=== PATIENT | female | born 1945 | race American Indian/Alaskan Native ===

== ENCOUNTER 2018-10-15 07:26 | Inpatient (IN) | payer MEDICARE ==
[~2018-10-15 07:26] MED LIST: NACL 0.9% 500 ML 500 ML IV ONE
[2018-10-15] MEDS ORDERED: ATIVAN IV ONE ×5 (07:30→08:18)
[2018-10-15] MEDS ORDERED: ATIVAN ONE ×2 (07:35→07:40)
[2018-10-15] MEDS ORDERED: KEPPRA 1,000 MG/NS 0.75% 100ML 1,000 MG/100 ML BAG IV ONE (07:37)
[2018-10-15] MEDS ORDERED: NACL 0.9% 1000 ML 1,000 ML IV ONE ×3 (07:38→08:04)
[2018-10-15] MEDS ORDERED: AMIDATE IV ONE ×2 (07:39→14:40)
[2018-10-15] MEDS ORDERED: QUELICIN IV ONE (07:41)
[2018-10-15] MEDS ORDERED: ATIVAN IV PRN (07:45)
[2018-10-15] MEDS ORDERED: VASELINE LIP THERAPY TP PRN (07:45)
[2018-10-15] MEDS ORDERED: ARTIFICIAL TEARS OPHTH OINT OU PRN (07:45)
[2018-10-15] MEDS ORDERED: MAXIPIME/NS 2 GM/100 ML 2 GM/100 ML BAG IV ONE (07:55)
[2018-10-15 07:59] LABS: Basophils % (Auto) 0.4 % (0.0-1.8); Eosinophils # (Auto) 0.1 K/mm3 (0.0-0.4); Eosinophils % (Auto) 0.5 % (0.0-4.3); Hematocrit 30.3 % (30.3-42.9); Lymphocytes # (Auto) 1.6 K/mm3 (1.2-5.4); Lymphocytes % (Auto) 13.7 % (13.4-35.0); Mean Corpuscular HGB Conc 33 % (30-34); Mean Corpuscular Volume 98 fl (79-97); Monocytes # (Auto) 0.8 K/mm3 (0.0-0.8); Monocytes % (Auto) 6.9 % (0.0-7.3); Platelet Count 336 K/mm3 (140-440); Red Blood Count 3.09 M/mm3 (3.65-5.03); Red Cell Distribution Width 17.7 % (13.2-15.2)
[2018-10-15] MEDS ORDERED: VANCOMYCIN PHARMACY TO DOSE IV SCH (08:00)
[2018-10-15] MEDS ORDERED: ATIVAN 100 MG in NACL 0.9% 50 ML, VIAFLEX EMPTY CONTAINER 0 ML IV SCH (08:00)
[2018-10-15 08:02] LABS: INR 1.28 (0.87-1.13)
[2018-10-15 08:06] LABS: Alanine Aminotransferase 131 units/L (7-56); Albumin 2.1 g/dL (3.9-5); BUN/Creatinine Ratio 22; Blood Urea Nitrogen 20 mg/dL (7-17); Calcium 8.1 mg/dL (8.4-10.2); Hemolysis Index 2
[2018-10-15] MEDS ORDERED: TYLENOL ONE (08:08)
--- NOTE | 2018-10-15 08:12 | XRay Report ---
PORTABLE CHEST INDICATION: Possible sepsis. COMPARISON: None similar. FINDINGS: Portable, frontal chest radiograph suggests mild cardiomegaly. Pulmonary arterial hypertension not excluded. Aortic knob calcifications. ET tube tip approximately 2.5 cm above the adolph. An esophagogastric tube extends into the stomach and beyond the inferior radiographic margin. Right hemidiaphragm approximately 2 cm higher than the left. Mild right infrahilar atelectasis/density. Otherwise clear lungs. EKG leads. Thoracic dextroscoliosis with multilevel osteophytes. CONCLUSION: No acute significant chest process in this intubated patient with various other findings, as above. Please correlate. Thank you for the opportunity to participate in this patient's care.
[2018-10-15] MEDS ORDERED: CORDARONE IV ONE (08:18)
[2018-10-15] MEDS ORDERED: TYLENOL PO ONE (08:25)
[2018-10-15 08:33] LABS: Bacteria,Urine 2+ /HPF (Negative); Bilirubin,Urine NEG (Negative); Blood,Urine LG (Negative); Color,Urine Amber (Yellow); Hyaline Casts,Urine 9 /LPF
[2018-10-15] MEDS ORDERED: LEVOPHED DRIP 4 MG/NS 250 ML 4 MG/250 ML BAG IV ONE (08:57)
[2018-10-15] MEDS ORDERED: XYLOCAINE 1% 20 mL INFILTRATI ONE (09:00)
[2018-10-15] MEDS ORDERED: XYLOCAINE 1% 20 mL ONE (09:04)
[2018-10-15] MEDS: LEVOPHED DRIP 4 MG/NS 250 ML 4 MG/250 ML BAG IV SCH ×2 (09:05→17:14)
--- NOTE | 2018-10-15 09:07 | Cat Scan Report ---
CT HEAD WITHOUT CONTRAST INDICATION: Seizure, altered mental status. COMPARISON: None similar. FINDINGS: Noncontrast head CT demonstrates presumed acute on chronic right subdural changes, including mild pneumocephalus with approximately 2.3 cm right frontal air noted as on axial series 2, image 32. Hypodense right subdural fluid also noted with maximum thickness of 1.4 cm right frontal, axial image 41. Subtle peripheral hyperdensity presumed related to the meninges. Mild underlying right cerebral mass effect/sulcal effacement, though no significant midline shift suspected at this time. Approximately 5 x 4 cm presumed encephalomalacia in the right posterior [id number] region as on axial image 32. Some parafalcine subdural fluid also incidentally noted. Right parietal ji hole with fluid noted on its either side, including overlying scalp. Grossly normal ventricles and the left hemisphere. Grossly normal posterior fossa with preserved basilar cisterns. Normal imaged eye globes. Mild nasal septal deviation. Moderate to severe left sphenoid sinus opacification. Mild right sphenoid, bilateral ethmoid, right frontal and bilateral maxillary sinus mucosal thickening. Left frontal sinus and bilateral mastoid air cells appear clear. Atherosclerotic ICA calcifications. Mild hyperostosis frontalis interna. Prominent nasopharyngeal soft tissue/adenoids that may be directly visualized. CONCLUSION: 1. Right subdural fluid collection and mild pneumocephalus may represent acute on chronic changes in this patient with right parietal ji hole, as detailed above. 2. Other findings, including sinusitis, as described above. Please also correlate clinically and with prior relevant imaging, if available. Thank you for the opportunity to participate in this patient's care.
[2018-10-15] MEDS ORDERED: CORDARONE 900 MG in D5W 482 ML IV SCH (09:30)
--- NOTE | 2018-10-15 09:39 | Emergency Department Report ---
ED General Adult HPI - General Chief complaint: Altered Mental Status Stated complaint: UNSTABLE Time Seen by Provider: 10/15/18 07:51 Source: EMS Mode of arrival: Stretcher Limitations: Altered Mental Status, Physical Limitation - History of Present Illness Initial comments: This is a 73 year old snf patient who the record states is oriented 2 at her baseline. She is recently status post a craniotomy and transferred to the snf at the end of September. The limited report we have from the snf is that "the patient is unstable". She was transported via EMS with no appreciable intervention. I was called into the room by one of the nurses who stated that it appeared the patient needed to be intubated. I immediately responded. I found the patient with generalized seizures. Her pulse oximetry was well maintained on oxygen. She had atrial fibrillation with rapid ventricular response. Her blood pressure was essentially normal. Airway required securing but she was breathing amply. On general appearance, she did seem toxic. Therefore the patient was prepared for rapid sequence intubation as we addressed her generalized seizures with Ativan and Keppra. -: unknown Severity scale (0 -10): 0 - Related Data Allergies Allergy/AdvReac Type Severity Reaction Status Date / Time No Known Allergies Allergy Unverified 01/01/15 09:52 ED Review of Systems ROS: Stated complaint: UNSTABLE Other details as noted in HPI Comment: Unobtainable due to pts medical conditions ED Past Medical Hx - Past Medical History Previous Medical History?: Yes Hx Hypertension: Yes Hx CVA: Yes (left side defecit) Hx Dementia: Yes - Surgical History Past Surgical History?: Yes Additional Surgical History: crainiotomy - Social History Smoking Status: Unknown if ever smoked Other Social History: assisted resident ED Physical Exam - General Limitations: Altered Mental Status, Physical Limitation General appearance: other (toxic. Actively seizing) - Eye Eye exam: Present: other (conjugate gaze deviation). Absent: scleral icterus - ENT ENT exam: Present: mucous membranes dry, other (trismus) - Neck Neck exam: Present: normal inspection. Absent: meningismus (not grossly) - Respiratory Respiratory exam: Present: decreased breath sounds - Cardiovascular Cardiovascular Exam: Present: tachycardia, irregular rhythm - GI/Abdominal GI/Abdominal exam: Present: soft. Absent: distended, guarding - Extremities Exam Extremities exam: Present: other (no acute deformity) - Back Exam Back exam: Present: other (unable to visualize) - Neurological Exam Neurological exam: Present: other (actively seizing) - Psychiatric Psychiatric exam: Present: other (not applicable) - Skin Skin exam: Present: warm, dry, normal color. Absent: intact (cannot view back), rash ED Course Vital Signs 10/15/18 10/15/18 10/15/18 07:30 07:40 07:50 Temperature Pulse Rate 190 H 191 H 165 H Respiratory 45 H 48 H 14 Rate Blood Pressure 109/85 137/90 Blood Pressure [Right] O2 Sat by Pulse 95 98 100 Oximetry 10/15/18 10/15/18 10/15/18 08:00 08:01 08:11 Temperature 102.1 F H Pulse Rate 162 H 154 H Respiratory 23 23 Rate Blood Pressure 108/33 Blood Pressure [Right] O2 Sat by Pulse 100 99 Oximetry 10/15/18 10/15/18 10/15/18 08:30 08:55 08:57 Temperature Pulse Rate 146 H 139 H Respiratory Rate Blood Pressure 92/43 Blood Pressure 51/28 94/45 [Right] O2 Sat by Pulse 100 100 Oximetry - Reevaluation(s) Reevaluation #1: Sekou Villegas, rapid sequence intubation. Intubation 7.5 Upper Sorbian 22 cm single attempt without difficulty. Seizing stopped. Patient with RVR and A. fib. Fluid bolus. Amiodarone and drip. Empirically Covered for sepsis. Hospitalist informed of the need to admit. To position that on chest x-ray without acute pulmonary process CT the head showed no acute process. Blood pressure started to drift low. Placed right IJ catheter single attempt without difficulty. Patient stable for transfer to the ICU for further care and evaluation appropriate consultation. 10/15/18 09:41 - Central Line Placement Right IJ Consent Obtained: emergent situation Time Out Performed: No Patient Placed on Monitor/Pulse Ox: Yes Prep: mask, gown, gloves Central Line Prep: Chlorhexidine scrub Local Anesthesia Used: Lidocaine 1% Ultrasound Used for Placement: No Central Line Lumen Inserted: triple Central Line Position: good blood return (venous dark red) Dressing Applied: Tegaderm Post Procedure X-Ray: tip of catheter in good p (right IJ in SVC consider right atrium) Patient Tolerated Procedure: well Complications: none - Intubation Time Out Performed: No Sedative: Etomidate Paralytic: Succinylcholine Laryngoscope: Val Size: 4 ET Tube Size: 7.5 Tube Secured Depth (cm): 22 Tube Secured Location: teeth Tube Placement Confirmation: visualized tube passing t Patient Tolerated Procedure: well Intubation Complications: none Additional Comments: Single attempt. No desaturation. ED Medical Decision Making - Lab Data Result diagrams: 10/15/18 07:39 10/15/18 07:39 Laboratory Results - last 24 hr 10/15/18 10/15/18 10/15/18 07:39 07:39 07:39 WBC 11.8 H RBC 3.09 L Hgb 10.0 L Hct 30.3 MCV 98 H MCH 32 MCHC 33 RDW 17.7 H Plt Count 336 Lymph % (Auto) 13.7 [place] % (Auto) 6.9 Eos % (Auto) 0.5 Baso % (Auto) 0.4 Lymph # 1.6 [place] # 0.8 Eos # 0.1 Baso # 0.0 Seg Neutrophils % 78.5 H Seg Neutrophils # 9.3 H PT 16.8 H INR 1.28 H APTT POC ABG pH POC ABG pCO2 POC ABG HCO3 POC ABG Total CO2 POC ABG O2 Sat POC ABG Base Excess VBG pH FiO2 Sodium 138 Potassium 4.7 Chloride 102.9 Carbon Dioxide 22 Anion Gap 18 BUN 20 H Creatinine 0.9 Estimated GFR > 60 BUN/Creatinine Ratio 22 Glucose 115 H Lactic Acid Calcium 8.1 L Magnesium Total Bilirubin 0.90 AST 143 H ALT 131 H Alkaline Phosphatase 128 Ammonia Total Creatine Kinase CK-MB (CK-2) Troponin T NT-Pro-B Natriuret Pep Total Protein 7.2 Albumin 2.1 L Albumin/Globulin Ratio 0.4 Lipase Urine Color Urine Turbidity Urine pH Ur Specific [place] Urine Protein Urine Glucose (UA) Urine Ketones Urine Blood Urine Nitrite Urine Bilirubin Urine Urobilinogen Ur Leukocyte Esterase Urine WBC (Auto) Urine RBC (Auto) U Epithel Cells (Auto) Urine Bacteria (Auto) Ur Transition Epith Cell Hyaline Casts Urine Yeast (Budding) Blood Type Antibody Screen 10/15/18 10/15/18 10/15/18 07:39 07:39 07:39 WBC RBC Hgb Hct MCV MCH MCHC RDW Plt Count Lymph % (Auto) [place] % (Auto) Eos % (Auto) Baso % (Auto) Lymph # [place] # Eos # Baso # Seg Neutrophils % Seg Neutrophils # PT INR APTT 27.0 POC ABG pH POC ABG pCO2 POC ABG HCO3 POC ABG Total CO2 POC ABG O2 Sat POC ABG Base Excess VBG pH 7.357 FiO2 Sodium Potassium Chloride Carbon Dioxide Anion Gap BUN Creatinine Estimated GFR BUN/Creatinine Ratio Glucose Lactic Acid 3.70 H* Calcium Magnesium Total Bilirubin AST ALT Alkaline Phosphatase Ammonia Total Creatine Kinase CK-MB (CK-2) Troponin T NT-Pro-B Natriuret Pep Total Protein Albumin Albumin/Globulin Ratio Lipase Urine Color Urine Turbidity Urine pH Ur Specific [place] Urine Protein Urine Glucose (UA) Urine Ketones Urine Blood Urine Nitrite Urine Bilirubin Urine Urobilinogen Ur Leukocyte Esterase Urine WBC (Auto) Urine RBC (Auto) U Epithel Cells (Auto) Urine Bacteria (Auto) Ur Transition Epith Cell Hyaline Casts Urine Yeast (Budding) Blood Type Antibody Screen 10/15/18 10/15/18 10/15/18 07:39 07:39 08:03 WBC RBC Hgb Hct MCV MCH MCHC RDW Plt Count Lymph % (Auto) [place] % (Auto) Eos % (Auto) Baso % (Auto) Lymph # [place] # Eos # Baso # Seg Neutrophils % Seg Neutrophils # PT INR APTT POC ABG pH POC ABG pCO2 POC ABG HCO3 POC ABG Total CO2 POC ABG O2 Sat POC ABG Base Excess VBG pH FiO2 Sodium Potassium Chloride Carbon Dioxide Anion Gap BUN Creatinine Estimated GFR BUN/Creatinine Ratio Glucose Lactic Acid Calcium Magnesium 1.50 L Total Bilirubin AST ALT Alkaline Phosphatase Ammonia 74.0 H Total Creatine Kinase 201 H CK-MB (CK-2) 2.0 Troponin T < 0.010 NT-Pro-B Natriuret Pep 876.0 Total Protein Albumin Albumin/Globulin Ratio Lipase 14 Urine Color Urine Turbidity Urine pH Ur Specific [place] Urine Protein Urine Glucose (UA) Urine Ketones Urine Blood Urine Nitrite Urine Bilirubin Urine Urobilinogen Ur Leukocyte Esterase Urine WBC (Auto) Urine RBC (Auto) U Epithel Cells (Auto) Urine Bacteria (Auto) Ur Transition Epith Cell Hyaline Casts Urine Yeast (Budding) Blood Type O POSITIVE Antibody Screen Negative 10/15/18 10/15/18 10/15/18 08:16 08:20 09:14 WBC RBC Hgb Hct MCV MCH MCHC RDW Plt Count Lymph % (Auto) [place] % (Auto) Eos % (Auto) Baso % (Auto) Lymph # [place] # Eos # Baso # Seg Neutrophils % Seg Neutrophils # PT INR APTT POC ABG pH 7.388 POC ABG pCO2 37.2 POC ABG HCO3 22.4 POC ABG Total CO2 24 POC ABG O2 Sat 100 POC ABG Base Excess -3 VBG pH FiO2 100 Sodium Potassium Chloride Carbon Dioxide Anion Gap BUN Creatinine Estimated GFR BUN/Creatinine Ratio Glucose Lactic Acid 2.60 H* Calcium Magnesium Total Bilirubin AST ALT Alkaline Phosphatase Ammonia Total Creatine Kinase CK-MB (CK-2) Troponin T NT-Pro-B Natriuret Pep Total Protein Albumin Albumin/Globulin Ratio Lipase Urine Color [place] Urine Turbidity Turbid Urine pH 5.0 Ur Specific [place] 1.015 Urine Protein 100 mg/dl Urine Glucose (UA) Neg Urine Ketones Neg Urine Blood Lg Urine Nitrite Neg Urine Bilirubin Neg Urine Urobilinogen 4.0 Ur Leukocyte Esterase Sm Urine WBC (Auto) 93.0 H Urine RBC (Auto) 59.0 U Epithel Cells (Auto) 40.0 H Urine Bacteria (Auto) 2+ Ur Transition Epith Cell 2 Hyaline Casts 9 Urine Yeast (Budding) 2+ Blood Type Antibody Screen - EKG Data -: EKG Interpreted by Me Rate: tachycardia (atrial fibrillation with rapid ventricular response) - EKG Data Interpretation: nonspecific ST-T wave kg - Radiology Data Radiology results: report reviewed Critical Care Time: Yes Critical care time in (mins) excluding proc time.: 90 Critical care attestation.: If time is entered above; I have spent that time in minutes in the direct care of this critically ill patient, excluding procedure time. ED Disposition Clinical Impression: Status epilepticus, Atrial fibrillation with RVR, Status post craniotomy Sepsis Qualifiers: Sepsis type: sepsis due to unspecified organism Qualified Code(s): A41.9 - Sepsis, unspecified organism UTI (urinary tract infection) Qualifiers: Urinary tract infection type: site unspecified Hematuria presence: with hematuria Qualified Code(s): N39.0 - Urinary tract infection, site not specified; R31.9 - Hematuria, unspecified Disposition: 09 OP ADMIT IP TO THIS HOSP Is pt being admited?: Yes Does the pt Need Aspirin: Yes Condition: Stable Time of Disposition: 09:47
[2018-10-15] MEDS ORDERED: TYLENOL PR ONE (09:47)
[2018-10-15] MEDS ORDERED: ASPIRIN PR ONE (09:47)
[2018-10-15] MEDS ORDERED: VANCOMYCIN 2,000 MG in NACL 0.9% 500 ML 500 ML IV ONE (10:00)
[2018-10-15] MEDS ORDERED: PEPCID IV SCH (10:00)
--- NOTE | 2018-10-15 10:02 | XRay Report ---
PORTABLE CHEST INDICATION: Central venous catheter placement. COMPARISON: 7:48 AM earlier today. FINDINGS: Portable, frontal chest radiograph, 9:21 AM, 10/15/2018 demonstrates new right IJ catheter tip in the right atrium, approximately 2.5 cm below the cavoatrial junction. No other significant interval change, allowing for limited inspiration. CONCLUSION: Interval right IJ catheter placement without evidence of pneumothorax, as described. Thank you for the opportunity to participate in this patient's care.
--- NOTE | 2018-10-15 11:27 | Consultation ---
History of Present Illness Consult date: 10/15/18 Requesting physician: DENIA WOODSON Reason for consult: other (Severe Sepsis) History of present illness: PULMONARY/CCM CONSULT NOTE (Full dictation # [id number]) Please see dictated notes for full details A&P: Acute Hypoxemic Resp Failure on MVS Severe Sepsis with Shock Acute Encephalopathy - full MVS - stat EEG (transfer if continuous seizures) - sedation to contro seizures / RASS 0 to -1 - vasopressors for target MAP > 65 mmHg - empiric AB's (? Vancomycin) - CRP, Lactate markers - GI & VTE prophylaxis - AED's (Keppra) - flu & pneumovax per protocol ... thanks for the consult .... we delvis follow along Medications and Allergies Allergies Allergy/AdvReac Type Severity Reaction Status Date / Time No Known Allergies Allergy Unverified 01/01/15 09:52 Active Meds: Active Medications Famotidine (Pepcid) 20 mg IV BID TONJA Last Admin: 10/15/18 11:24 Dose: 20 mg Documented by: Hydrophilic Ointment (Vaseline Lip Therapy) 1 applic TP Q2HR PRN PRN Reason: Dry Lips Lorazepam 100 mg/ Sodium Chloride/ Miscellaneous Information 100 mls @ 1 mls/hr IV TITR TONJA; Protocol Last Titration: 10/15/18 10:15 Dose: 2 mg/hr, 2 mls/hr Documented by: Amiodarone HCl 900 mg/ (Dextrose) 500 mls @ 33.333 mls/hr IV DIRECT TONJA; Protocol Last Admin: 10/15/18 11:24 Dose: 1 mg/min, 33.333 mls/hr Documented by: Norepinephrine (Levophed Drip 4 Mg/Ns 250 Ml) 4 mg in 250 mls @ 7.5 mls/hr IV TITR TONJA; Protocol Last Titration: 10/15/18 10:15 Dose: 8 mcg/min, 30 mls/hr Documented by: Vancomycin HCl 2,000 mg/ (Sodium Chloride) 540 mls @ 250 mls/hr IV ONCE ONE Stop: 10/15/18 12:09 Last Admin: 10/15/18 11:24 Dose: 250 mls/hr Documented by: Lorazepam (Ativan) 2 mg IV Q10MIN PRN PRN Reason: Agitation Multi-Ingred Cream/Lotion/Oil/Oint (Artificial Tears Ophth Oint) 1 applic OU Q4HR PRN PRN Reason: Dry Eye(s) Physical Examination Vital signs: Vital Signs Pulse Resp Pulse Ox 190 H 45 H 95 10/15/18 07:30 10/15/18 07:30 10/15/18 07:30 Results - Laboratory Findings CBC and BMP: 10/15/18 07:39 10/15/18 07:39 ABG POC ABG pH 7.388 (7.35-7.45) 10/15/18 09:14 POC ABG pCO2 37.2 (35-45) 10/15/18 09:14 POC ABG HCO3 22.4 (22-26 mml/L) 10/15/18 09:14 POC ABG Total CO2 24 (23-27mmol/L) 10/15/18 09:14 POC ABG O2 Sat 100 10/15/18 09:14 PT/INR, D-dimer PT 16.8 Sec. (12.2-14.9) H 10/15/18 07:39 INR 1.28 (0.87-1.13) H 10/15/18 07:39 Abnormal lab findings: Abnormal Labs 10/15/18 10/15/18 10/15/18 07:39 07:39 07:39 WBC 11.8 H RBC 3.09 L Hgb 10.0 L MCV 98 H RDW 17.7 H Seg Neutrophils % 78.5 H Seg Neutrophils # 9.3 H PT 16.8 H INR 1.28 H BUN 20 H Glucose 115 H POC Glucose Lactic Acid Calcium 8.1 L Magnesium AST 143 H ALT 131 H Ammonia Total Creatine Kinase Albumin 2.1 L Urine WBC (Auto) U Epithel Cells (Auto) 10/15/18 10/15/18 10/15/18 07:39 07:39 07:39 WBC RBC Hgb MCV RDW Seg Neutrophils % Seg Neutrophils # PT INR BUN Glucose POC Glucose Lactic Acid 3.70 H* Calcium Magnesium 1.50 L AST ALT Ammonia 74.0 H Total Creatine Kinase 201 H Albumin Urine WBC (Auto) U Epithel Cells (Auto) 10/15/18 10/15/18 10/15/18 08:16 08:20 10:30 WBC RBC Hgb MCV RDW Seg Neutrophils % Seg Neutrophils # PT INR BUN Glucose POC Glucose 111 H Lactic Acid 2.60 H* Calcium Magnesium AST ALT Ammonia Total Creatine Kinase Albumin Urine WBC (Auto) 93.0 H U Epithel Cells (Auto) 40.0 H
--- NOTE | 2018-10-15 12:02 | History and Physical Report ---
History of Present Illness Date of admission: 10/15/18 08:10 Chief complaint: seizure History of present illness: 73-year-old woman with history of subdural hematoma status post craniotomy who was [facility] When she was sent over for multiple seizures. She can had witnessed seizures in the ER. She was intubated, she received Keppra and Ativan. Past medical history; hypertension, CVA, dementia, history of subdural hematoma status post craniotomy Surgical history; craniotomy Social history; no history of tobacco alcohol or illicit drug abuse. group home resident Family history; hypertension Constitutional: no fever, no chills, no night sweats, no weight loss, no weight gain, no sweats, no anorexia, no fatigue, no weakness, no malaise, no lethargy Eyes: bilateral: other (no complaint of visual problems.) Ears, nose, mouth and throat: mouth pain, no ear pain, no ear discharge, no decreased hearing, no nose pain, no nasal congestion, no bleeding gums, no dental pain, no dysphagia, no hoarseness, no sore throat Cardiovascular: no orthopnea, no palpitations, no rapid/irregular heart beat, no phlebitis Respiratory: no cough with sputum, no excessive sputum, no hemoptysis, no wheezing, no pleurisy, no pain Gastrointestinal: no abdominal pain, no nausea, no vomiting, no diarrhea, no hematochezia, no loss of appetite Rectal: no pain, no incontinence, no bleeding Musculoskeletal: no neck stiffness, no neck pain, no shooting arm pain, no arm numbness/tingling, no low back pain, no shooting leg pain, no leg numbness/tingling Integumentary: no pruritis, no redness, no sores Neurological: Patient has had multiple seizures, Psychiatric: no memory loss, no change in sleep habits, no disorientation Endocrine: no heat intolerance, no polyphagia Hematologic/Lymphatic: no easy bruising, no easy bleeding Allergic/Immunologic: no allergic rhinitis Medications and Allergies Allergies Allergy/AdvReac Type Severity Reaction Status Date / Time No Known Allergies Allergy Unverified 01/01/15 09:52 Active Meds: Active Medications Famotidine (Pepcid) 20 mg IV BID TONJA Last Admin: 10/15/18 11:24 Dose: 20 mg Documented by: Hydrophilic Ointment (Vaseline Lip Therapy) 1 applic TP Q2HR PRN PRN Reason: Dry Lips Lorazepam 100 mg/ Sodium Chloride/ Miscellaneous Information 100 mls @ 1 mls/hr IV TITR TONJA; Protocol Last Titration: 10/15/18 10:15 Dose: 2 mg/hr, 2 mls/hr Documented by: Amiodarone HCl 900 mg/ (Dextrose) 500 mls @ 33.333 mls/hr IV DIRECT TONJA; Protocol Last Admin: 10/15/18 11:24 Dose: 1 mg/min, 33.333 mls/hr Documented by: Norepinephrine (Levophed Drip 4 Mg/Ns 250 Ml) 4 mg in 250 mls @ 7.5 mls/hr IV TITR TONJA; Protocol Last Titration: 10/15/18 10:15 Dose: 8 mcg/min, 30 mls/hr Documented by: Vancomycin HCl 2,000 mg/ (Sodium Chloride) 540 mls @ 250 mls/hr IV ONCE ONE Stop: 10/15/18 12:09 Last Admin: 10/15/18 11:24 Dose: 250 mls/hr Documented by: Lorazepam (Ativan) 2 mg IV Q10MIN PRN PRN Reason: Agitation Multi-Ingred Cream/Lotion/Oil/Oint (Artificial Tears Ophth Oint) 1 applic OU Q4HR PRN PRN Reason: Dry Eye(s) Exam - Constitutional Vitals: Temp Pulse Resp BP Pulse Ox 102.1 F H 95 H 19 102/58 100 10/15/18 08:00 10/15/18 10:50 10/15/18 09:30 10/15/18 10:50 10/15/18 10:50 General appearance: Present: no acute distress, other (appear chronically ill) - EENT Eyes: Present: PERRL ENT: hearing intact, clear oral mucosa - Neck Neck: Present: supple, normal ROM - Respiratory Respiratory effort: normal Respiratory: bilateral: CTA - Cardiovascular Heart Sounds: Present: S1 & S2. Absent: rub, click - Extremities Extremities: pulses symmetrical, No edema Peripheral Pulses: within normal limits - Abdominal General gastrointestinal: Present: soft, non-tender, non-distended, normal bowel sounds Female genitourinary: Present: normal - Integumentary Integumentary: Present: clear, warm, dry - Musculoskeletal Musculoskeletal: strength equal bilaterally - Psychiatric Psychiatric: other (nonresponsive) - Neurologic Neurologic: other (obtunded and unresponsive) Results - Labs CBC & Chem 7: 10/15/18 07:39 10/15/18 07:39 Labs: Laboratory Last Values WBC 11.8 K/mm3 (4.5-11.0) H 10/15/18 07:39 RBC 3.09 M/mm3 (3.65-5.03) L 10/15/18 07:39 Hgb 10.0 gm/dl (10.1-14.3) L 10/15/18 07:39 Hct 30.3 % (30.3-42.9) 10/15/18 07:39 MCV 98 fl (79-97) H 10/15/18 07:39 MCH 32 pg (28-32) 10/15/18 07:39 MCHC 33 % (30-34) 10/15/18 07:39 RDW 17.7 % (13.2-15.2) H 10/15/18 07:39 Plt Count 336 K/mm3 (140-440) 10/15/18 07:39 Lymph % (Auto) 13.7 % (13.4-35.0) 10/15/18 07:39 [place] % (Auto) 6.9 % (0.0-7.3) 10/15/18 07:39 Eos % (Auto) 0.5 % (0.0-4.3) 10/15/18 07:39 Baso % (Auto) 0.4 % (0.0-1.8) 10/15/18 07:39 Lymph # 1.6 K/mm3 (1.2-5.4) 10/15/18 07:39 [place] # 0.8 K/mm3 (0.0-0.8) 10/15/18 07:39 Eos # 0.1 K/mm3 (0.0-0.4) 10/15/18 07:39 Baso # 0.0 K/mm3 (0.0-0.1) 10/15/18 07:39 Seg Neutrophils % 78.5 % (40.0-70.0) H 10/15/18 07:39 Seg Neutrophils # 9.3 K/mm3 (1.8-7.7) H 10/15/18 07:39 PT 16.8 Sec. (12.2-14.9) H 10/15/18 07:39 INR 1.28 (0.87-1.13) H 10/15/18 07:39 APTT 27.0 Sec. (24.2-36.6) 10/15/18 07:39 POC ABG pH 7.388 (7.35-7.45) 10/15/18 09:14 POC ABG pCO2 37.2 (35-45) 10/15/18 09:14 POC ABG HCO3 22.4 (22-26 mml/L) 10/15/18 09:14 POC ABG Total CO2 24 (23-27mmol/L) 10/15/18 09:14 POC ABG O2 Sat 100 10/15/18 09:14 POC ABG Base Excess -3 ((-2) - (+3)mmol/L) 10/15/18 09:14 VBG pH 7.357 (7.320-7.420) 10/15/18 07:39 100 % 10/15/18 09:14 Sodium 138 mmol/L (137-145) 10/15/18 07:39 Potassium 4.7 mmol/L (3.6-5.0) 10/15/18 07:39 Chloride 102.9 mmol/L (98-107) 10/15/18 07:39 Carbon Dioxide 22 mmol/L (22-30) 10/15/18 07:39 18 mmol/L 10/15/18 07:39 BUN 20 mg/dL (7-17) H 10/15/18 07:39 0.9 mg/dL (0.7-1.2) 10/15/18 07:39 Estimated GFR > 60 ml/min 10/15/18 07:39 22 % 10/15/18 07:39 Glucose 115 mg/dL (65-100) H 10/15/18 07:39 POC Glucose 111 (70-105) H 10/15/18 10:30 Lactic Acid 2.60 mmol/L (0.7-2.0) H* 10/15/18 08:20 Calcium 8.1 mg/dL (8.4-10.2) L 10/15/18 07:39 Magnesium 1.50 mg/dL (1.7-2.3) L 10/15/18 07:39 0.90 mg/dL (0.1-1.2) 10/15/18 07:39 AST 143 units/L (5-40) H 10/15/18 07:39 ALT 131 units/L (7-56) H 10/15/18 07:39 128 units/L (35-129) 10/15/18 07:39 74.0 umol/L (25-60) H 10/15/18 07:39 201 units/L (30-135) H 10/15/18 07:39 CK-MB (CK-2) 2.0 ng/mL (0.0-4.0) 10/15/18 07:39 < 0.010 ng/mL (0.00-0.029) 10/15/18 07:39 NT-Pro-B Natriuret Pep 876.0 pg/mL (0-900) 10/15/18 07:39 7.2 g/dL (6.3-8.2) 10/15/18 07:39 2.1 g/dL (3.9-5) L 10/15/18 07:39 0.4 % 10/15/18 07:39 14 units/L (13-60) 10/15/18 07:39 Berta (Yellow) 10/15/18 08:16 Turbid (Clear) 10/15/18 08:16 5.0 (5.0-7.0) 10/15/18 08:16 Ur Specific [place] 1.015 (1.003-1.030) 10/15/18 08:16 100 mg/dl mg/dL (Negative) 10/15/18 08:16 Neg mg/dL (Negative) 10/15/18 08:16 Neg mg/dL (Negative) 10/15/18 08:16 Lg (Negative) 10/15/18 08:16 Neg (Negative) 10/15/18 08:16 Neg (Negative) 10/15/18 08:16 4.0 mg/dL (<2.0) 10/15/18 08:16 Ur Leukocyte Esterase Sm (Negative) 10/15/18 08:16 93.0 /HPF (0.0-6.0) H 10/15/18 08:16 59.0 /HPF (0.0-6.0) 10/15/18 08:16 U Epithel Cells (Auto) 40.0 /HPF (0-13.0) H 10/15/18 08:16 2+ /HPF (Negative) 10/15/18 08:16 Ur Transition Epith Cell 2 /HPF 10/15/18 08:16 Hyaline Casts 9 /LPF 10/15/18 08:16 2+ /HPF 10/15/18 08:16 Blood Type O POSITIVE 10/15/18 08:03 Antibody Screen Negative 10/15/18 08:03 Assessment and Plan Assessment and plan: Assessment and plan Neuro Subdural hematoma Status epilepticus Case discussed with neurologist, given presence of subdural hematoma she's been transferred to [facility] when she had her craniotomy done -Patient received antiepileptic drugs and Ativan. Septic shock/UTI Continue IV pressors Continue antibiotics, follow cultures Acute metabolic encephalopathy Neurology input appreciated, likely due to seizure Critical care time 35 minutes
--- NOTE | 2018-10-15 13:03 | Consultation ---
Medications and Allergies Allergies Allergy/AdvReac Type Severity Reaction Status Date / Time No Known Allergies Allergy Unverified 01/01/15 09:52 Active Meds: Active Medications Famotidine (Pepcid) 20 mg IV BID TONJA Last Admin: 10/15/18 11:24 Dose: 20 mg Documented by: Hydrophilic Ointment (Vaseline Lip Therapy) 1 applic TP Q2HR PRN PRN Reason: Dry Lips Lorazepam 100 mg/ Sodium Chloride/ Miscellaneous Information 100 mls @ 1 mls/hr IV TITR TONJA; Protocol Last Titration: 10/15/18 10:15 Dose: 2 mg/hr, 2 mls/hr Documented by: Amiodarone HCl 900 mg/ (Dextrose) 500 mls @ 33.333 mls/hr IV DIRECT TONJA; Protocol Last Admin: 10/15/18 11:24 Dose: 1 mg/min, 33.333 mls/hr Documented by: Norepinephrine (Levophed Drip 4 Mg/Ns 250 Ml) 4 mg in 250 mls @ 7.5 mls/hr IV TITR TONJA; Protocol Last Titration: 10/15/18 12:41 Dose: 10 mcg/min, 37.5 mls/hr Documented by: Cefepime HCl (Maxipime/Ns 2 Gm/100 Ml) 2 gm in 100 mls @ 200 mls/hr IV Q8H TONJA; Protocol Lorazepam (Ativan) 2 mg IV Q10MIN PRN PRN Reason: Agitation Multi-Ingred Cream/Lotion/Oil/Oint (Artificial Tears Ophth Oint) 1 applic OU Q4HR PRN PRN Reason: Dry Eye(s) Physical Examination - Vital Signs Vital Signs: Vital Signs Pulse Resp Pulse Ox 190 H 45 H 95 10/15/18 07:30 10/15/18 07:30 10/15/18 07:30 Results - Laboratory Findings CBC and BMP: 10/15/18 07:39 10/15/18 07:39 Abnormal Lab Findings: Abnormal Labs 10/15/18 10/15/18 10/15/18 07:39 07:39 07:39 WBC 11.8 H RBC 3.09 L Hgb 10.0 L MCV 98 H RDW 17.7 H Seg Neutrophils % 78.5 H Seg Neutrophils # 9.3 H PT 16.8 H INR 1.28 H BUN 20 H Glucose 115 H POC Glucose Lactic Acid Calcium 8.1 L Magnesium AST 143 H ALT 131 H Ammonia Total Creatine Kinase Albumin 2.1 L Urine WBC (Auto) U Epithel Cells (Auto) 10/15/18 10/15/18 10/15/18 07:39 07:39 07:39 WBC RBC Hgb MCV RDW Seg Neutrophils % Seg Neutrophils # PT INR BUN Glucose POC Glucose Lactic Acid 3.70 H* Calcium Magnesium 1.50 L AST ALT Ammonia 74.0 H Total Creatine Kinase 201 H Albumin Urine WBC (Auto) U Epithel Cells (Auto) 10/15/18 10/15/18 10/15/18 08:16 08:20 10:30 WBC RBC Hgb MCV RDW Seg Neutrophils % Seg Neutrophils # PT INR BUN Glucose POC Glucose 111 H Lactic Acid 2.60 H* Calcium Magnesium AST ALT Ammonia Total Creatine Kinase Albumin Urine WBC (Auto) 93.0 H U Epithel Cells (Auto) 40.0 H Assessment and Plan Miss Lay is a 73-year-old female with history of an intracranial process on the right hemisphere and was transferred to a skilled nursing at the end of September. Patient was noted to have altered mental status this morning when the nursing staff from the skilled nursing called EMS and transferred her to the emergency. Upon arrival in the emergency she was noted to have generalized seizure for which she was intubated and transferred to ICU. After coming to the emergency her blood pressure started dropping and it went down as far as 80/47 patient was started on Ativan IV and also Keppra thousand milligrams IV. Patient had evidence of infection with increased WBC count for which she had been started on antibiotics. Physical examination. Patient is verbally unresponsive, responds to painful stimulation by facial grimacing. Pupils react to light. Corneal reflexes present, has spontaneous eye movement. No spontaneous movement of the extremities. Reflexes could not be elicited due to obesity and plantar response was upgoing on the left side. Impression. Status epilepticus in a background of recent craniotomy and inf ection with evidence of any subdural hematoma in the right frontal and parietal lobes to me and it seems chronic. However, the radiologist has reported subdural hematoma as acute on chronic. Recommendation. #1. Continue Keppra IV thousand milligrams daily. #2. Continue Ativan 2 mg IV every 4 hours as needed . #3. Will review the EEG ordered,and if it shows continuousi seizure activity will increase the dose of Keppra further
--- NOTE | 2018-10-15 13:39 | Consultation ---
History of Present Illness - Reason for Consult Consult date: 10/15/18 sepsis Requesting physician: ROEL FELIX - History of Present Illness 73 y/o female with history of hypertension, CVA s/p recent craniotomy admitted on 10/15/2018 due to altered mental status and [facility] her [facility]. Patient is currently intubated unable to provide history. History is obtained from review of records. In the ED, temp 102.1, HR 190, R 45, BP 109/85. WBC 11.8. Hg 10. Plat 336. Creat 0.9. Lactate 3.7. AST 143. ALT 131. UA with 93 wbc and small LE. Blood cultures 10/15/2018 pending. She was found with generalized seizures and atrial fibrillation with rapid ventricular response. She was intubated in the ED and an old hardin was removed. CXR no consolidations. ROS: unable to obtain Medications and Allergies Allergies Allergy/AdvReac Type Severity Reaction Status Date / Time No Known Allergies Allergy Unverified 01/01/15 09:52 Active Meds: Active Medications Enoxaparin Sodium (Lovenox) 40 mg SUB-Q QDAY@2200 TONJA Famotidine (Pepcid) 20 mg IV BID TONJA Last Admin: 10/15/18 11:24 Dose: 20 mg Documented by: Hydrophilic Ointment (Vaseline Lip Therapy) 1 applic TP Q2HR PRN PRN Reason: Dry Lips Lorazepam 100 mg/ Sodium Chloride/ Miscellaneous Information 100 mls @ 1 mls/hr IV TITR TONJA; Protocol Last Titration: 10/15/18 10:15 Dose: 2 mg/hr, 2 mls/hr Documented by: Amiodarone HCl 900 mg/ (Dextrose) 500 mls @ 33.333 mls/hr IV DIRECT TONJA; Protocol Last Admin: 10/15/18 11:24 Dose: 1 mg/min, 33.333 mls/hr Documented by: Norepinephrine (Levophed Drip 4 Mg/Ns 250 Ml) 4 mg in 250 mls @ 7.5 mls/hr IV TITR TONJA; Protocol Last Titration: 10/15/18 12:41 Dose: 10 mcg/min, 37.5 mls/hr Documented by: Cefepime HCl (Maxipime/Ns 2 Gm/100 Ml) 2 gm in 100 mls @ 200 mls/hr IV Q8H TONJA; Protocol Lorazepam (Ativan) 2 mg IV Q10MIN PRN PRN Reason: Agitation Multi-Ingred Cream/Lotion/Oil/Oint (Artificial Tears Ophth Oint) 1 applic OU Q4HR PRN PRN Reason: Dry Eye(s) Physical Examination - Constitutional Vitals: Vital Signs Temp Pulse Resp BP Pulse Ox 102.1 F H 95 H 19 102/58 100 10/15/18 08:00 10/15/18 10:50 10/15/18 09:30 10/15/18 10:50 10/15/18 10:50 Temperature -Last 24 Hours Temperature 102.1 F Results - Labs CBC & Chem 7: 10/15/18 07:39 10/15/18 07:39 Labs: Abnormal lab results 10/15/18 10/15/18 10/15/18 Range/Units 07:39 07:39 07:39 WBC 11.8 H (4.5-11.0) K/mm3 RBC 3.09 L (3.65-5.03) M/mm3 Hgb 10.0 L (10.1-14.3) gm/dl MCV 98 H (79-97) fl RDW 17.7 H (13.2-15.2) % Seg Neutrophils % 78.5 H (40.0-70.0) % Seg Neutrophils # 9.3 H (1.8-7.7) K/mm3 PT 16.8 H (12.2-14.9) Sec. INR 1.28 H (0.87-1.13) BUN 20 H (7-17) mg/dL Glucose 115 H (65-100) mg/dL POC Glucose (70-105) Lactic Acid (0.7-2.0) mmol/L Calcium 8.1 L (8.4-10.2) mg/dL Magnesium (1.7-2.3) mg/dL AST 143 H (5-40) units/L ALT 131 H (7-56) units/L Ammonia (25-60) umol/L Total Creatine Kinase (30-135) units/L Albumin 2.1 L (3.9-5) g/dL Urine WBC (Auto) (0.0-6.0) /HPF U Epithel Cells (Auto) (0-13.0) /HPF 10/15/18 10/15/18 10/15/18 Range/Units 07:39 07:39 07:39 WBC (4.5-11.0) K/mm3 RBC (3.65-5.03) M/mm3 Hgb (10.1-14.3) gm/dl MCV (79-97) fl RDW (13.2-15.2) % Seg Neutrophils % (40.0-70.0) % Seg Neutrophils # (1.8-7.7) K/mm3 PT (12.2-14.9) Sec. INR (0.87-1.13) BUN (7-17) mg/dL Glucose (65-100) mg/dL POC Glucose (70-105) Lactic Acid 3.70 H* (0.7-2.0) mmol/L Calcium (8.4-10.2) mg/dL Magnesium 1.50 L (1.7-2.3) mg/dL AST (5-40) units/L ALT (7-56) units/L Ammonia 74.0 H (25-60) umol/L Total Creatine Kinase 201 H (30-135) units/L Albumin (3.9-5) g/dL Urine WBC (Auto) (0.0-6.0) /HPF U Epithel Cells (Auto) (0-13.0) /HPF 10/15/18 10/15/18 10/15/18 Range/Units 08:16 08:20 10:30 WBC (4.5-11.0) K/mm3 RBC (3.65-5.03) M/mm3 Hgb (10.1-14.3) gm/dl MCV (79-97) fl RDW (13.2-15.2) % Seg Neutrophils % (40.0-70.0) % Seg Neutrophils # (1.8-7.7) K/mm3 PT (12.2-14.9) Sec. INR (0.87-1.13) BUN (7-17) mg/dL Glucose (65-100) mg/dL POC Glucose 111 H (70-105) Lactic Acid 2.60 H* (0.7-2.0) mmol/L Calcium (8.4-10.2) mg/dL Magnesium (1.7-2.3) mg/dL AST (5-40) units/L ALT (7-56) units/L Ammonia (25-60) umol/L Total Creatine Kinase (30-135) units/L Albumin (3.9-5) g/dL Urine WBC (Auto) 93.0 H (0.0-6.0) /HPF U Epithel Cells (Auto) 40.0 H (0-13.0) /HPF 10/15/18 Range/Units 12:24 WBC (4.5-11.0) K/mm3 RBC (3.65-5.03) M/mm3 Hgb (10.1-14.3) gm/dl MCV (79-97) fl RDW (13.2-15.2) % Seg Neutrophils % (40.0-70.0) % Seg Neutrophils # (1.8-7.7) K/mm3 PT (12.2-14.9) Sec. INR (0.87-1.13) BUN (7-17) mg/dL Glucose (65-100) mg/dL POC Glucose 113 H (70-105) Lactic Acid (0.7-2.0) mmol/L Calcium (8.4-10.2) mg/dL Magnesium (1.7-2.3) mg/dL AST (5-40) units/L ALT (7-56) units/L Ammonia (25-60) umol/L Total Creatine Kinase (30-135) units/L Albumin (3.9-5) g/dL Urine WBC (Auto) (0.0-6.0) /HPF U Epithel Cells (Auto) (0-13.0) /HPF Assessment and Plan Cultures: Blood cultures 10/15/2018 no growth today Assessment: 73 y/o female with history of hypertension, recent craniotomy admitted on 10/15/2018 due to altered mental status and seizures at her [facility], history is limited, in the ED, fever 102, found with generalized seizures and atrial fibrillation with rapid ventricular response: 1) Severe Sepsis: Present on admission, manifested by fever, tachycardia, increased lactate. Etiology unclear. ?CAUTI ?sinusitis. In light of recent craniotomy and now with fever and seizures, meningitis/intracranial infection should be ruled out. CXR negative. 2) CAUTI: patient with an old indwelling hardin which was removed in the ED. UA with 93 wbc and small LE. 3) Acute encephalopathy: ? unclear etiology ? meningitis ? subdural hematoma. CT head showed acute on chronic right subdural changes, including mild pneumocephalus with approximately 2.3 cm right frontal air with hypodense right subdural fluid also noted with maximum thickness of 1.4 cm right frontal and subtle peripheral hyperdensity presumed related to the meninges. Right parietal ji hole with fluid noted on its either side, including overlying scalp. Noted Moderate to severe left sphenoid sinus opacification. 4) Acute respiratory failure: intubated 5) Elevated LFTs: from sepsis 6) RVR A fib Recommendations: - follow-up blood cultures - check UA and follow urine culture - Please discuss with neurology safety to perform a lumbar puncture, if ok then obtain fluoroscopy-LP for Gram stain, cell count, diff, culture, glucose, protein and crypto antigen - continue cefepime at 2 gm IV q 8 h - start vancomycin with PK consult - repeat CXR rounding this weekned Will follow. Heather Crawley MD Infectious Diseases [facility] ([facility] M [phone] O [phone]
[2018-10-15] MEDS ORDERED: QUELICIN ONE (14:40)
[2018-10-15] MEDS ORDERED: MAXIPIME/NS 2 GM/100 ML 2 GM/100 ML BAG IV SCH (16:00)
--- NOTE | 2018-10-15 16:00 | Consultation ---
CONSULTING PHYSICIAN: Davon Rutherford MD REASON FOR CONSULTATION: Critical care management, acute respiratory failure, on mechanical ventilator support. CHIEF COMPLAINT AND HISTORY OF PRESENT ILLNESS: The patient is a 73-year-old female, [facility] patient who is reportedly alert and oriented x 2 at her baseline. She is recently status post craniotomy, transferred to the [facility] [facility] at the end of September. She was brought into the ER secondary to not being stable. When the Emergency Room evaluated the patient, they found the patient with generalized tonic-clonic seizures. She also was in atrial fibrillation with a rapid ventricular response. She was intubated for airway protection. Diagnosed with status epilepticus and admitted to the Intensive Care Unit where I stopped by to see her. When I stopped by to see her, she was on an Ativan drip going 2 mg per hour. I do not have any history of vomiting or overt aspiration. She was not responsive to me. She was also requiring Levophed that was going at 8 mcg per minute to keep mean arterial pressures in the low 60s at the time. We do not have any history of trauma. We not have any history of vomiting or overt aspiration. Unfortunately, this is as much of the history of presentation as I have. I should also mention that she was on an amiodarone drip going at 1 mg per minute. PAST MEDICAL HISTORY: Hypertension, cerebrovascular accident with left hemiparesis by history, and history of dementia. PAST SURGICAL HISTORY: She had a craniotomy unclear when. MEDICATIONS: She was on at the time I stopped by to see were reviewed. Pertinent medications include the following: Amiodarone drip was going at 1 mg per minute, cefepime 2 g IV q. 8 hours, Pepcid 20 mg IV b.i.d., Ativan drip was 2 mg per hour as mentioned, on Levophed at 8 mcg per minute. ALLERGIES: No known drug allergies. DIET: Obese lady, acute weight loss or gain history is unknown. FAMILY AND SOCIAL HISTORY: [facility] resident. No current alcohol, tobacco, or illicit drug use or abuse. Remote history is unknown. REVIEW OF SYSTEMS: Unobtainable secondary to patient's medical and mental condition. Since she has been here, no gross hematochezia or melena. No gross hematuria, no hematemesis, no bloody tracheal secretions. She did have the witnessed grand mal seizures. Review of systems otherwise unobtainable. PHYSICAL EXAMINATION: VITAL SIGNS: At presentation, she was febrile, temperature 102.1 degrees Fahrenheit with a pulse of, respiratory rate of 45, blood pressure 109/85, O2 sats were 98%, inspired oxygen concentration at that time was not recorded. When I went by to see her, she was on the mechanical ventilator, assist control mode, tidal volume 450, rate of 18, PEEP of 6, and 40% FiO2 and #7.5 ET tube. GENERAL: Again, she is a morbidly obese female, intubated on the mechanical ventilator riding the set rate without significant patient ventilator dyssynchrony. HEAD, EYES, EARS, NOSE AND THROAT: She is anicteric. No conjunctival erythema. Oropharynx is moist. Endotracheal tube is taped at the lips around 22-23 cm. No gross jugular venous distention. She does have a large neck circumference, but no overt thyromegaly. NECK: Grossly, there were no palpable lymph nodes in the supraclavicular or submandibular lymph node chains. LUNGS: Auscultation of both lung frances revealed bilateral rhonchi and referred upper airway sounds. No active wheezing. HEART: Heart sounds 1 and 2 are heard. Irregular in rate and rhythm at the time of my evaluation, but rate now in the 90s and no murmurs. ABDOMEN: Soft, full, bowel sounds are positive, nontender, no palpable hepatosplenomegaly. EXTREMITIES: Without overt digital clubbing or cyanosis. She had trace bipedal pitting edema. She has some erythema to the right ankle area without overt cellulitis. Pedal pulses were palpable and strong bilaterally. NEUROLOGIC: Pupils were equal, round, about 2-3 mm, sluggishly reactive to light. She had no nystagmus. Extraocular muscle movements could otherwise be assessed. She was sedated and otherwise not following commands or moving her extremities spontaneously. The skin was of poor turgor without overt cellulitis or rashes. LABORATORY DATA: From my review is as follows: Admission white cell count 11,800 with a hemoglobin of 10, hematocrit of 30.3 and platelet count of 333. No manual differential. No band forms. INR 1.28. Arterial blood gas showed a pH of 7.39, pCO2 of 37, pO2 was not recorded. However, that was on 100% FiO2, O2 sats were 100%. Serum sodium was 138, potassium 4.7, chloride 103, bicarbonate 22, BUN 20, creatinine 0.9, glucose 115. Lactic acid level at presentation was 3.7. Magnesium was low at 1.5. AST 143, ALT 131. Troponins within normal limits. Albumin low at 3.1. Urinalysis showed small leukocyte esterase, negative nitrites, 93 white cells per high power field and 2+ bacteria. Two sets of blood cultures have been drawn, no growth to date. A CT scan of her head was done. It was reported as right subdural fluid collection and mild pneumocephalus, look like it may be acute on chronic, probably chronic based on the history, otherwise sinusitis. A chest x-ray, some elevation of the right hemidiaphragm, faint infiltrate in the right lower lobe area. No gross pneumothorax, no gross bony fracture that I can see. She now has a right IJ in place. Tip is in the distal SVC and again no gross pneumothorax. A feeding tube is seen coursing through the mediastinum and cardiomegaly. ASSESSMENT AND PLAN: 1. Acute hypoxemic respiratory failure, on mechanical ventilatory support. 2. Status epilepticus. 3. Acute encephalopathy, toxic metabolic. 4. Possible urinary tract infection. 5. History of cerebrovascular accident with residual left hemiparesis. 6. Anemia that is microcytic. 7. Leukocytosis. 8. Lactic acidosis. 9. Hypomagnesemia. 10. Elevated serum transaminases. 11. Lied-ot-ysklliem protein calorie malnutrition. 12. Hypoalbuminemia with serum ammonia of 74. 13. Obesity 14. Atrial fibrillation with rapid ventricular response PLAN: I have spoken with the neurologist. A stat Neurology consult has been placed, stat EEG has been placed. Basically, we need to ensure she is not in continued status despite her sedation, if that is the case, she will need to be transferred to a center that can do continuous EEG monitoring in the meantime. We will keep her on full mechanical ventilatory support. Aspiration precautions will be maintained. We will continue the amiodarone. She will be kept on empiric broad spectrum antibiotic therapy. I have an inclination to give her 1 dose of vancomycin, I will revisit that. A CRP level will be ordered. Lactic acid levels will be trended. Anti-infectives will be deescalated based on results of clinical and microbiologic data. Bakari lindquist will be continued for now. We will target RASS scale of 0 to -1. Enteral nutrition will be the feeding modality of choice. She is appropriately on GI prophylaxis. She will be placed on DVT prophylaxis. Vasopressors will be weaned to keep mean arterial pressures greater than or equal to about 65 mmHg. She received a dose of Keppra. We will continue the antiepileptic therapy with Keppra to modify per Neurology. Flu and pneumonia vaccination will be addressed per protocol. Thank you very much for the consult, Dr. Rutherford. We will follow along and make further recommendations as picture progresses/becomes clearer. She is critically ill on life-sustaining interventions including mechanical ventilatory support and vasopressors at high risk of . At this time, I spent about 40 minutes of critical care time without overlap excluding any procedural time that may be necessary. JOB# [id number] VIVIEN/LINDA
[2018-10-15 20:35] VITALS: BP 135/86
[2018-10-15] MEDS ORDERED: LOVENOX SUB-Q SCH (22:00)
== END 2018-10-15 20:41 | disposition critical access hospital (66) | DRG 871 ==
LOC: ED 07:26 → CC1 08:10
PROVIDERS: ADMIT Hospitalist; ATTEND Internal Medicine
PROC: 02H633Z Insertion of Infusion Device into Right Atrium, Percutaneous Approach (ICD-10-PCS; principal; 2018-10-15)
PROC: 5A1935Z Respiratory Ventilation, Less than 24 Consecutive Hours (ICD-10-PCS; 2018-10-15)
PROC: 0BH17EZ Insertion of Endotracheal Airway into Trachea, Via Natural or Artificial Opening (ICD-10-PCS; 2018-10-15)
DX: A41.9 Sepsis, unspecified organism (principal); J96.01 Acute respiratory failure with hypoxia; R65.21 Severe sepsis with septic shock; G92 Toxic encephalopathy; I69.354 Hemiplegia and hemiparesis following cerebral infarction affecting left non-dominant side; E44.0 Moderate protein-calorie malnutrition; N39.0 Urinary tract infection, site not specified; G40.901 Epilepsy, unspecified, not intractable, with status epilepticus; I10 Essential (primary) hypertension; F03.90 Unspecified dementia, unspecified severity, without behavioral disturbance, psychotic disturbance, mood disturbance, and anxiety; D50.9 Iron deficiency anemia, unspecified; E83.42 Hypomagnesemia; E66.9 Obesity, unspecified; I48.91 Unspecified atrial fibrillation; R31.9 Hematuria, unspecified; Z68.38 Body mass index [BMI] 38.0-38.9, adult
CPT/HCPCS: 36415; 51702; 70450; 71045; 80053; 81001; 82140; 82550; 82553; 82803; 82805; 82962; 83690; 83735; 83880; 84484; 85025; 85610; 85730; 86140; 86850; 86900; 86901; 87040; 87070; 87086; 87116; 87205; 93005; 93010; 94002; 96365; 96368; 96375; 96376; 99292; G0378; J0282; J0330; J0692; J1953; J2060; J3370; J7030; J7040; J7060